=== PATIENT | female | born 1995 | race Two or more races ===

== ENCOUNTER 2018-10-01 19:47 | Emergency (ER) | payer OTHER ==
[~2018-10-01] VITALS: Ht 165.1 cm; Wt 78.0 kg
[2018-10-01 20:23] VITALS: Ht 165.1 cm; Wt 78.0 kg
[2018-10-01 21:31] LABS: BASOPHIL % 0.8 % (0-2); PLATELET COUNT 208 x10^3mcL (130-400); RED CELL DISTRIBUTION WIDTH 13.8 % (11.5-14.5)
[2018-10-01 21:41] LABS: ALBUMIN 3.7 g/dL (3.4-5.0); ALKALINE PHOSPHATASE 61 U/L (46-116); ALT/SGPT 38 U/L (14-59); AST/SGOT 23 U/L (15-37); BILIRUBIN TOTAL 0.35 mg/dL (0.20-1.00); CALCIUM 9.5 mg/dL (8.5-10.1); CREATININE SERUM 0.7 mg/dL (0.6-1.0); GFR1 > 60 mL/min; GLUCOSE SERUM 90 mg/dL (74-106); LIPASE 203 IU/L (73-393); TOTAL PROTEIN, SERUM 7.6 g/dL (6.4-8.2)
[2018-10-01 21:51] LABS: CHLORIDE SERUM 101 mmol/L (98-107); POTASSIUM SERUM 3.9 mmol/L (3.5-5.1); SODIUM SERUM 131 mmol/L (136-145)
[2018-10-01 23:26] VITALS: BP 125/68
== END 2018-10-01 23:26 | disposition home or self-care (01) ==
LOC: ED 19:47
PROVIDERS: Emergency Medicine
DX: R10.30 Lower abdominal pain, unspecified (principal); R11.0 Nausea; N83.209 Unspecified ovarian cyst, unspecified side
CPT/HCPCS: 36415; J1885; Q0092

== ENCOUNTER 2018-12-24 05:30 | Emergency (ER) | payer OTHER ==
[~2018-12-24] VITALS: Ht 165.1 cm; Wt 83.2 kg
[2018-12-24 07:15] LABS: BASOPHIL % 0.3 % (0-2); PLATELET COUNT 197 x10^3mcL (130-400); RED CELL DISTRIBUTION WIDTH 14.5 % (11.5-14.5)
[2018-12-24 07:23] LABS: CALCIUM 7.9 mg/dL (8.5-10.1); CARBON DIOXIDE 29.8 mmol/L (21-32); CHLORIDE SERUM 104 mmol/L (98-107); CREATININE SERUM 0.7 mg/dL (0.6-1.0); GFR1 > 60 mL/min; GLUCOSE SERUM 88 mg/dL (74-106); POTASSIUM SERUM 4.2 mmol/L (3.5-5.1); SODIUM SERUM 142 mmol/L (136-145)
[2018-12-24 07:28] LABS: ALBUMIN 3.7 g/dL (3.4-5.0); ALKALINE PHOSPHATASE 65 U/L (46-116); ALT/SGPT 40 U/L (14-59); AST/SGOT 37 U/L (15-37); BILIRUBIN TOTAL 0.15 mg/dL (0.20-1.00); LIPASE 291 IU/L (73-393); TOTAL PROTEIN, SERUM 7.2 g/dL (6.4-8.2)
[2018-12-24 10:14] VITALS: BP 108/70
== END 2018-12-24 10:14 | disposition home or self-care (01) ==
LOC: ED 05:30
PROVIDERS: Emergency Medicine
DX: R10.9 Unspecified abdominal pain (principal)
CPT/HCPCS: 36415

== ENCOUNTER 2020-05-05 19:37 | Emergency (ER) | payer OTHER ==
[~2020-05-05] VITALS: Ht 165.1 cm; Wt 64.9 kg
[2020-05-05 19:46] VITALS: BP 132/79; Ht 165.1 cm; Wt 64.9 kg
== END 2020-05-05 21:05 | disposition home or self-care (01) ==
LOC: ED 19:37
DX: Z20.6 Contact with and (suspected) exposure to human immunodeficiency virus [HIV] (principal)

== ENCOUNTER 2020-06-29 22:08 | Emergency (ER) | payer OTHER ==
[~2020-06-29] VITALS: Ht 165.1 cm; Wt 70.3 kg
[2020-06-29 22:18] VITALS: BP 123/35; Ht 165.1 cm; Wt 70.3 kg
[2020-06-29 23:08] LABS: microscopic required? NO
[2020-06-29 23:24] LABS: urine erythrocyte NEGATIVE (NEGATIVE)
[2020-06-30] MEDS ORDERED: PRENATAL MULTI1 EAC2 PO (01:10)
== END 2020-06-30 01:21 | disposition home or self-care (01) ==
LOC: ED 22:08
DX: R10.9 Unspecified abdominal pain (principal)